=== PATIENT | female | born 1950 | race Caucasian/White ===

== ENCOUNTER 2024-12-11 17:53 | Emergency (ER) | payer SELFPAY ==
[~2024-12-11] VITALS: Ht 167.6 cm; Wt 100.0 kg
[2024-12-11 18:11] VITALS: TEMP 98.5; O2SAT 98
[2024-12-11 22:20] LABS: HEMATOCRIT 39.1 % (36.0-48.0); MEAN CORPUSCULAR HEMOGLOBIN 29.4 pg (28.0-32.0); MEAN CORPUSCULAR HGB CONC 33.3 g/dL (31.0-37.0); MEAN CORPUSCULAR VOLUME 88.4 fL (81.0-99.0); PLATELET 295 x1000/uL (130-400); RED BLOOD CELL COUNT 4.42 mill/uL (4.2-5.4); RED CELL DISTRIBUTION WIDTH 13.5 % (11.6-14.6)
[2024-12-11 22:24] LABS: CHLORIDE 102 mEq/L (98-107); POTASSIUM 3.6 mEq/L (3.5-5.1); SODIUM 137 mEq/L (136-145)
[2024-12-11 22:25] LABS: CALCIUM 9.3 mg/dL (8.7-10.4); CARBON DIOXIDE 30 mEq/L (21-32)
[2024-12-11 22:26] LABS: PROTHROMBIN TIME 10.8 sec (9.6-11.0)
[2024-12-11 22:30] LABS: CREATININE 0.9 mg/dL (0.6-1.0); GLUCOSE 183 mg/dL (70-105); UREA NITROGEN BLOOD 14 mg/dL (9-23)
[2024-12-11 22:32] LABS: ALANINE AMINOTRANSFERASE 14 IU/L (10-49); ALBUMIN 3.8 g/dL (3.2-4.8); ASPARTATE AMINOTRANSFERASE 24 IU/L (<34); BILIRUBIN TOTAL 0.4 mg/dL (0.1-1.0); PROTEIN TOTAL 6.7 g/dL (6.0-8.3)
[2024-12-12 01:23] VITALS: BP 113/88; PULSE 78; RESP 20
[2024-12-12] MEDS: KETOROLAC 15MG/ML VIAL IV NR (01:23)
[2024-12-12] MEDS ORDERED: IBUP-2028 MT (03:48)
[2024-12-12] MEDS ORDERED: TOPUD MT (03:48)
== END 2024-12-12 04:00 | disposition home or self-care (01) ==
LOC: ER 17:53
DX: M54.9 Dorsalgia, unspecified (principal); E11.9 Type 2 diabetes mellitus without complications; I10 Essential (primary) hypertension; M81.0 Age-related osteoporosis without current pathological fracture; Z88.5 Allergy status to narcotic agent; W19.XXXA Unspecified fall, initial encounter; Y93.89 Activity, other specified; Y92.89 Other specified places as the place of occurrence of the external cause; Y99.8 Other external cause status
CPT/HCPCS: 80053; 85027; 85610; 36415; 72170; 74176; 99285; 96374; Z7610 ×2; A4663; J1885; A4606